=== PATIENT | male | born 1955 | race Caucasian/White ===

== ENCOUNTER 2017-03-18 21:20 | Emergency (ER) | END 2017-03-19 13:21 | disposition home or self-care (01) ==

== ENCOUNTER 2018-10-20 15:16 | Emergency (ER) | payer MEDICARE, OTHER ==
[~2018-10-20] VITALS: Ht 175.3 cm; Wt 78.9 kg
[~2018-10-20 15:16] MED LIST: CLON-230 PO
[2018-10-20 15:17] VITALS: Ht 175.3 cm; Wt 78.9 kg
[2018-10-20] MEDS ORDERED: POTASSIUM CHLORIDE (SR) 20 MEQ TAB PO STA (17:03)
--- NOTE | 2018-10-20 17:37 | PSY ---
Date/Time of Note Date/Time of Note DATE: 10/20/18 TIME: 20:33 Psychiatric Subjective Eval Consent Pt consented to telemedicine: Yes Subjective Evaluation Patient location: emergency Chief Complaint: pt. states "I'm hearing voices to kill myself" History of present illness HPI: 63 yo male with ho psychosis, tells MD he is hearing voices to kill himself for one day. Says he is thinking of killing himself. Denies drug use. Admits to etoh use. past Psych Hx: + ho psych admits and suicide attempts PMHx: htn, mskel pin nkda Meds: not taking MSe: disheveled, cooperative, slow and slurred speech, dysthymic, restricted affect, organized, no delusions + Ah +SI Imp: 63 yo male with CAh to kill self, si, etoh use voluntary psych admit alcohol withdrawal precautions with ciwa daily thiamine folate mvi d/w dr. gaines for moderate agitation zyprexa 5mg po prn d/w attending Medical history Problems Medical Problems: (1) Back pain Status: Acute (2) Psychological assessment Status: Acute (3) Suicidal ideation Status: Acute Allergies: Coded Allergies: No Known Allergy (Unverified , 02/21/12) Psychiatric Objective Eval Mental Status Examination: Laboratory Results Laboratory Tests Test 10/20/18 15:44 10/20/18 16:30 White Blood Count 4.3 10^3/ul Red Blood Count 4.97 10^6/ul Hemoglobin 14.1 g/dl Hematocrit 43.0 % Mean Corpuscular Volume 86.5 fl Mean Corpuscular Hemoglobin 28.4 pg Mean Corpuscular Hemoglobin Concent 32.8 g/dl Red Cell Distribution Width 14.7 % Platelet Count 267 10^3/UL Mean Platelet Volume 9.1 fl Immature Granulocytes % 0.200 % Neutrophils % 41.6 % Lymphocytes % 41.4 % Monocytes % 11.4 % Eosinophils % 4.9 % Basophils % 0.5 % Nucleated Red Blood Cells % 0.0 /100WBC Immature Granulocytes # 0.010 10^3/ul Neutrophils # 1.8 10^3/ul Lymphocytes # 1.8 10^3/ul Monocytes # 0.5 10^3/ul Eosinophils # 0.2 10^3/ul Basophils # 0.0 10^3/ul Nucleated Red Blood Cells # 0.0 10^3/ul Sodium Level 140 mmol/L Potassium Level 3.3 mmol/L Chloride Level 110 mmol/L Carbon Dioxide Level 19 mmol/L Anion Gap 11 Blood Urea Nitrogen 12 mg/dl Creatinine 0.86 mg/dl Est Glomerular Filtrat Rate mL/min > 60 mL/min Glucose Level 115 mg/dl Calcium Level 9.4 mg/dl Total Bilirubin 0.3 mg/dl Direct Bilirubin 0.00 mg/dl Indirect Bilirubin 0.3 mg/dl Aspartate Amino Transf (AST/SGOT) 22 IU/L Alanine Aminotransferase (ALT/SGPT) 13 IU/L Alkaline Phosphatase 105 IU/L Total Protein 7.3 g/dl Albumin 3.9 g/dl Globulin 3.40 g/dl Albumin/Globulin Ratio 1.14 Salicylates Level < 1.0 mg/dl Acetaminophen Level < 10.0 ug/ml Ethyl Alcohol Level 97.0 mg/dl Urine Color STRAW Urine Clarity CLEAR Urine pH 6.0 Urine Specific [place] 1.008 Urine Ketones NEGATIVE mg/dL Urine Nitrite NEGATIVE mg/dL Urine Bilirubin NEGATIVE mg/dL Urine Urobilinogen NEGATIVE mg/dL Urine Leukocyte Esterase NEGATIVE Penny/ul Urine Hemoglobin NEGATIVE mg/dL Urine Glucose NEGATIVE mg/dL Urine Total Protein NEGATIVE mg/dl Urine Opiates Screen Negative Urine Barbiturates Negative Urine Amphetamines Screen Negative Urine Benzodiazepines Screen Negative Urine Cocaine Screen Negative Urine Cannabinoids Negative Assessment and Plan Recommendation/Plan Multiple antipsychotics: No Discharge Disposition: Psychiatric inpatient Legal Status: Voluntary JYOTI GRESHAM Oct 20, 2018 17:37
--- NOTE | 2018-10-20 19:01 | ERD ---
ER Documentation Chief Complaint Chief Complaint pt. states "I'm hearing voices to kill myself" HPI The patient is an 63-year-old male, presenting to the ER because of acute auditory hallucination that asked him to kill himself. He denies visual hallucination/homicidal ideation, headache, neck pain, chest pain, dyspnea, abdominal pain, vomiting, dysuria, diarrhea. He smokes and drinks, denies illicit drug Medical history: Schizophrenia, hypertension Past surgical history: Back surgery, ruptured intestine ROS All systems reviewed and are negative except as per history of present illness. Medications Home Meds Reported Medications Clonidine Hcl (Clonidine Hcl) 0.1 Mg Tablet, 0.1 MG PO BID 02/21/12 Allergies Allergies: Coded Allergies: No Known Allergy (Unverified , 02/21/12) PMhx/Soc History of Surgery: Yes (L4L5 SURG) Anesthesia Reaction: No Hx Neurological Disorder: No Hx Respiratory Disorders: No Hx Cardiac Disorders: No Hx Psychiatric Problems: Yes (DEPRESSION) Hx Miscellaneous Medical Probl: Yes (HTN) Hx Alcohol Use: Yes Hx Substance Use: Yes (crack, meth) Hx Tobacco Use: Yes Smoking Status: Current every day smoker Physical Exam Vitals Vital Signs Date Temp Pulse Resp B/P (MAP) Pulse Ox O2 O2 Flow FiO2 Time Delivery Rate 10/20/18 98.7 85 20 109/83 97 17:53 (92) 10/20/18 98.7 100 20 118/91 97 16:01 (100) 10/20/18 98.7 127 20 116/74 97 15:17 (88) Physical Exam Const: No acute distress. Head: Atraumatic. Eyes: Normal Conjunctiva. ENT: Normal External Ears, Nose and Mouth. Neck: Full range of motion. No meningismus. Resp: Clear to auscultation bilaterally. Cardio: Regular rate and rhythm. Abd: Soft, non distended, normal bowel sounds, non tender. Skin: No petechiae or rashes. Back: No midline or flank tenderness. Ext: No cyanosis, or edema. Neur: Awake and alert. No focal deficit Psych: Suicidal Result Diagram: 10/20/18 1544 10/20/18 1544 Results 24 hrs Laboratory Tests Test 10/20/18 15:44 10/20/18 16:30 White Blood Count 4.3 10^3/ul Red Blood Count 4.97 10^6/ul Hemoglobin 14.1 g/dl Hematocrit 43.0 % Mean Corpuscular Volume 86.5 fl Mean Corpuscular Hemoglobin 28.4 pg Mean Corpuscular Hemoglobin Concent 32.8 g/dl Red Cell Distribution Width 14.7 % Platelet Count 267 10^3/UL Mean Platelet Volume 9.1 fl Immature Granulocytes % 0.200 % Neutrophils % 41.6 % Lymphocytes % 41.4 % Monocytes % 11.4 % Eosinophils % 4.9 % Basophils % 0.5 % Nucleated Red Blood Cells % 0.0 /100WBC Immature Granulocytes # 0.010 10^3/ul Neutrophils # 1.8 10^3/ul Lymphocytes # 1.8 10^3/ul Monocytes # 0.5 10^3/ul Eosinophils # 0.2 10^3/ul Basophils # 0.0 10^3/ul Nucleated Red Blood Cells # 0.0 10^3/ul Sodium Level 140 mmol/L Potassium Level 3.3 mmol/L Chloride Level 110 mmol/L Carbon Dioxide Level 19 mmol/L Anion Gap 11 Blood Urea Nitrogen 12 mg/dl Creatinine 0.86 mg/dl Est Glomerular Filtrat Rate mL/min > 60 mL/min Glucose Level 115 mg/dl Calcium Level 9.4 mg/dl Total Bilirubin 0.3 mg/dl Direct Bilirubin 0.00 mg/dl Indirect Bilirubin 0.3 mg/dl Aspartate Amino Transf (AST/SGOT) 22 IU/L Alanine Aminotransferase (ALT/SGPT) 13 IU/L Alkaline Phosphatase 105 IU/L Total Protein 7.3 g/dl Albumin 3.9 g/dl Globulin 3.40 g/dl Albumin/Globulin Ratio 1.14 Salicylates Level < 1.0 mg/dl Acetaminophen Level < 10.0 ug/ml Ethyl Alcohol Level 97.0 mg/dl Urine Color STRAW Urine Clarity CLEAR Urine pH 6.0 Urine Specific [place] 1.008 Urine Ketones NEGATIVE mg/dL Urine Nitrite NEGATIVE mg/dL Urine Bilirubin NEGATIVE mg/dL Urine Urobilinogen NEGATIVE mg/dL Urine Leukocyte Esterase NEGATIVE Penny/ul Urine Hemoglobin NEGATIVE mg/dL Urine Glucose NEGATIVE mg/dL Urine Total Protein NEGATIVE mg/dl Urine Opiates Screen Negative Urine Barbiturates Negative Urine Amphetamines Screen Negative Urine Benzodiazepines Screen Negative Urine Cocaine Screen Negative Urine Cannabinoids Negative Current Medications Medications Dose Sig/Nathan Start Time Status Last (Trade) Ordered Route PRN Stop Time Admin Dose Reason Admin Potassium 40 meq ONCE STAT 10/20/18 DC 10/20/18 Chloride PO 17:03 17:16 (Klor-Con 20) 10/20/18 17:12 Procedures/MDM MEDICAL MAKING DECISION: The patient is a 63-year-old male, presenting with acute suicidal ideation, acute hypokalemia, acute alcohol abuse, leukopenia. He was treated with potassium chloride 40 mg p.o. for acute hyperkalemia The differential diagnoses considered include but are not limited to decomp ensated psychiatric illness, medical noncompliance, anxiety attack, panic attack, substance abuse Departure Diagnosis: Primary Impression: Suicidal ideation Additional Impressions: Hypokalemia Alcohol abuse Leukopenia Condition: Stable Comments I discussed the patient with telepsychiatrist after he read the patient. He recommended voluntary 5150 psychiatric admission He is cleared for psychiatric evaluation and admission RUTH ANN FERRIS MD Oct 20, 2018 19:01
--- NOTE | 2018-10-20 21:12 | EN ---
Date/Time of Note Date/Time of Note DATE: 10/20/18 TIME: 21:11 ER Progress Note Sign Out Note: Dr. Jiang relayed current data and ongoing care with me. Time: Time of this note Main Issue: Suicide Ideations Pending: Transfer to psychiatric facility on a voluntary basis. I was told by Dr. Jiang that this patient is medically cleared for transfer to a psychiatric facility. Patient is pending placement. HAM SONI MD Oct 20, 2018 21:12
[2018-10-20 21:53] VITALS: BP 140/90; PULSE 65; RESP 18
== END 2018-10-20 22:41 | disposition home or self-care (01) ==
LOC: E/R 15:16
DX: E87.6 Hypokalemia (principal); I10 Essential (primary) hypertension; F17.210 Nicotine dependence, cigarettes, uncomplicated; D72.819 Decreased white blood cell count, unspecified; F10.10 Alcohol abuse, uncomplicated
CPT/HCPCS: 36415; 80053; 80307; 81003; 85025; 99283

== ENCOUNTER 2018-10-27 16:27 | Emergency (ER) | payer MEDICARE, OTHER ==
[~2018-10-27] VITALS: Ht 180.3 cm; Wt 90.0 kg
[2018-10-27 16:30] VITALS: Ht 180.3 cm; Wt 90.0 kg
[2018-10-27] MEDS ORDERED: SOD CHLORIDE 0.9% 1,000 ML IV STA ×2 (16:35)
--- NOTE | 2018-10-27 16:54 | ERD ---
ER Documentation Chief Complaint Chief Complaint BIBA D/T SYNCOPE AND HYPOTENSION AND ETOH HPI This is a 63-year-old male that presents to the emergency department after he had a witnessed brief transient loss of consciousness with loss of postural tone and complete spontaneous recovery at [facility] just prior to arrival. 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 The syncope episode only lasted for roughly 5 seconds. He stated that he felt dizzy and therefore sat down and when EMS arrived the patient was hypotensive. They administered a 500 cc bolus of normal saline. The patient denied any chest pain. He denied a headache. He did state that he had been consuming alcohol today. He had been in the hot sun for an extended period of time. He denies any shortness of breath at rest or exertion. ROS All systems reviewed and are negative except as per history of present illness. Medications Home Meds Reported Medications Ibuprofen* (Ibuprofen*) 800 Mg Tab, 800 MG PO Q12H PRN for PAIN, TAB 10/27/18 Gabapentin* (Gabapentin*) 300 Mg Capsule, 300 MG PO TID, #90 CAP 10/27/18 [place]-3 Acid Ethyl Esters (Lovaza) 1 Gm Capsule, 2 GM PO BID, CAP 10/27/18 Ezetimibe* (Zetia*) 10 Mg Tablet, 10 MG PO HS, TAB 10/27/18 Quetiapine Fumarate* (Seroquel*) 50 Mg Tablet, 50 MG PO BID, TAB 10/27/18 Esomeprazole Mag Trihydrate (Nexium) 40 Mg Capsule.dr, 40 MG PO DAILY, #30 CAP 10/27/18 Losartan Potassium* (Losartan Potassium*) 25 Mg Tablet, 25 MG PO DAILY, TAB 10/27/18 Paroxetine Hcl* (Paroxetine*) 20 Mg Tablet, 20 MG PO HS, TAB 10/27/18 Clonidine Hcl* (Clonidine Hcl*) 0.1 Mg Tab, 0.1 MG PO BID, TAB 10/27/18 Discontinued Reported Medications Clonidine Hcl (Clonidine Hcl) 0.1 Mg Tablet, 0.1 MG PO BID 02/21/12 Allergies Allergies: Coded Allergies: No Known Allergy (Unverified , 10/27/18) PMhx/Soc History of Surgery: Yes (L4L5 SURG) Anesthesia Reaction: No Hx Neurological Disorder: No Hx Respiratory Disorders: No Hx Cardiac Disorders: No Hx Psychiatric Problems: Yes (DEPRESSION, SCHIZO) Hx Miscellaneous Medical Probl: Yes (HTN) Hx Alcohol Use: Yes Hx Substance Use: Yes (crack, meth) Hx Tobacco Use: Yes Physical Exam Vitals Vital Signs Date Temp Pulse Resp B/P (MAP) Pulse Ox O2 O2 Flow FiO2 Time Delivery Rate 10/27/18 16 121/81 98 Room Air 18:30 (94) 10/27/18 82 16 93/62 (72) 96 Room Air 17:06 110 107/76 (86) 112 108/85 (93) 10/27/18 97.9 82 16 87/60 (69) 98 16:30 Physical Exam Constitutional:Well-developed. Disheveled HEENT:Normocephalic. Atraumatic with no nasal septal hematoma no hemotympanum. Pupils were equal round reactive to light. Dry mucous membranes.No tonsillar exudates. Neck: No nuchal rigidity. No lymphadenopathy. No posterior cervical spine tenderness or step-offs. Respiratory: Not using accessory muscles of respiration.Lungs were clear to auscultation bilaterally. No rhonchi. No rales. No wheezing. Cardiovascular: Regular rate regular rhythm.No murmurs. No rubs were appreciated.S1, S2 normal. Distal pulses are palpable 2+ bilaterally. GI: Abdomen was soft. Nontender. Non Distended. No pulsatile abdominal masses or bruits. No rebound. No guarding. Bowel sounds were present and normal. Muscle skeletal: Full range of motion of both the upper and lower extremities bilaterally.Normal muscle tone.No assymetrical calf tenderness or swelling. Skin: No petechia, no purpura. No lesions on the palms or the soles of the feet. No maculopapular rash. NEURO: Patient was alert, awake, orientated x3.No facial droop. Gait not observed as patient felt too weak to ambulate. Patient smelled of alcohol. Result Diagram: 10/27/18181310/27/181813 Results 24 hrs Laboratory Tests Test 10/27/18 18:07 10/27/18 18:14 Bedside Glucose 58 mg/dL White Blood Count 7.1 10^3/ul Red Blood Count 4.82 10^6/ul Hemoglobin 13.6 g/dl Hematocrit 41.4 % Mean Corpuscular Volume 85.9 fl Mean Corpuscular Hemoglobin 28.2 pg Mean Corpuscular Hemoglobin Concent 32.9 g/dl Red Cell Distribution Width 14.5 % Platelet Count 294 10^3/UL Mean Platelet Volume 9.3 fl Immature Granulocytes % 0.400 % Neutrophils % 68.9 % Lymphocytes % 18.1 % Monocytes % 9.9 % Eosinophils % 2.1 % Basophils % 0.6 % Nucleated Red Blood Cells % 0.0 /100WBC Immature Granulocytes # 0.030 10^3/ul Neutrophils # 4.9 10^3/ul Lymphocytes # 1.3 10^3/ul Monocytes # 0.7 10^3/ul Eosinophils # 0.2 10^3/ul Basophils # 0.0 10^3/ul Nucleated Red Blood Cells # 0.0 10^3/ul Prothrombin Time 13.0 Sec Prothrombin Time Ratio 1.0 INR International Normalized Ratio 0.97 Activated Partial Thromboplast Time 25.8 Sec Sodium Level 138 mmol/L Potassium Level 4.0 mmol/L Chloride Level 107 mmol/L Carbon Dioxide Level 19 mmol/L Anion Gap 12 Blood Urea Nitrogen 14 mg/dl Creatinine 1.19 mg/dl Est Glomerular Filtrat Rate mL/min > 60 mL/min Glucose Level 82 mg/dl Calcium Level 8.7 mg/dl Total Bilirubin 0.3 mg/dl Direct Bilirubin 0.00 mg/dl Indirect Bilirubin 0.3 mg/dl Aspartate Amino Transf (AST/SGOT) 31 IU/L Alanine Aminotransferase (ALT/SGPT) 40 IU/L Alkaline Phosphatase 91 IU/L Troponin I < 0.012 ng/ml Total Protein 7.2 g/dl Albumin 3.9 g/dl Globulin 3.30 g/dl Albumin/Globulin Ratio 1.18 Ethyl Alcohol Level 95.0 mg/dl Current Medications Medications Dose Sig/Nathan Start Time Status Last (Trade) Ordered Route PRN Stop Time Admin Dose Reason Admin Sodium 1,000 ml @ Q1H STAT 10/27/18 DC 10/27/18 Chloride 1,000 mls/hr IV 16:35 10/27/18 16:35 17:34 Sodium 1,000 ml @ Q1H STAT 10/27/18 DC 10/27/18 Chloride 1,000 mls/hr IV 16:35 10/27/18 16:35 17:34 Procedures/MDM The patient presented to the emergency department with a transient loss of consciousness with loss of postural tone, suggestive of a syncope episode. The differential diagnosis of syncope is vast but my workup considered common benign disorders to life-threatening processes. Therefore my differential diagnosis included but was not limited to reflex-mediated syncope such as vasovagal or carotid sinus syncope from coughing, sneezing, micturition, or GI stimulation (eg, defecation). Other etiologies in my workup included orthostatic hypotension which could cause syncope from an abrupt drop in venous return to heart from volume depletion. An EKG and cardiac enzymes were obtained to rule out cardiac arrhythmias or ischemia. Cardiopulmonary disease such as valvular disease, hypertrophic cardiomyopathy, pericardial tamponade, or pulmonary embolism were considered as a factor causing the patients syncope episode. The patient had no difference in blood pressure in both arms that could suggest aortic dissection or subclavian steal syndrome. Rectal exam was negative for fecal occult blood that could suggest GI bleeding. Ancillary laboratory work was obtained to evaluate for metabolic or electrolyte abnormalities. The patient had no witnessed brief tonic movements that could suggest postictal confusion. The patient was placed on a instructor physical education, continuous pulse oximetry and IV access established by nursing staff. The patient had orthostatic hypotension and was given a liter bolus of normal saline. 12 Lead EKG tracing ordered and reviewed by myself showed: Normal sinus rhythm of 84 bpm and no arrhythmia. DE interval normal. QRS duration normal. No ST segment elevation with minimal criteria for LVH No ST segment depression. No changes consistent with acute ischemia. Given that the patient was clinically intoxicated and initially a poor historian I did feel is necessary to obtain a CT scan the patient's head. There is no intracerebral hemorrhage such as subdural hematoma or mass-effect. I did feel the patient's syncope was more likely a vasovagal episode exacerbated by his alcohol intoxication. The patient had received IV fluids in the emergency department with complete resolution of his blood pressure. The patient had no severe left light abnormalities. He remained in the emergency department to clinical sobriety tree. He stated he felt comfortable being discharged home. He had no suicidal homicidal thoughts or ideations. The patient was hypoglycemic with a blood glucose of 58. He stated he had not eaten for over 12 hours. He was given a meal in the emergency department. Observation Note: Time: 4 hours Family Hx: No Hypertension Evaluation: Multiple exams showed improving symptoms and no evidence of worsening of his condition. The patient was discharged home in fair condition. They were instructed to return to the emergency department at any time if there was any worsening of their condition. The patient stated they would follow up with their PCP in the next 24-48 hours to initiate a suitable medication regimen under the care of their PCP as well as to allow their PCP to monitor any drug reactions. The patient was discharged home with prescriptions after they gave informed consent to the new medication. They were also fully informed by myself on the adverse effects and adverse drug interactions in order to provide adequate safeguards to prevent possible adverse reactions to medications. Departure Diagnosis: Primary Impression: Syncope Syncope type: unspecified Qualified Codes: R55 - Syncope and collapse Additional Impression: Alcohol intoxication Complication of substance-induced condition: uncomplicated Qualified Codes: F10.920 - Alcohol use, unspecified with intoxication, uncomplicated Condition: Fair CLARISA FISH MD Oct 27, 2018 16:54
[2018-10-27] MEDS ORDERED: CLON-379 PO (17:04)
[2018-10-27] MEDS ORDERED: LOSA25TA12 PO (17:05)
[2018-10-27] MEDS ORDERED: PARO-37 PO (17:05)
[2018-10-27] MEDS ORDERED: ESOM40CA PO (17:06)
[2018-10-27] MEDS ORDERED: QUET50TA PO (17:07)
[2018-10-27] MEDS ORDERED: EZET10TA31 PO (17:08)
[2018-10-27] MEDS ORDERED: OMEG1CAP2 PO (17:08)
[2018-10-27] MEDS ORDERED: GABA300C16 PO (17:09)
[2018-10-27] MEDS ORDERED: IBUP-1545 PO (17:10)
[2018-10-27 20:12] VITALS: BP 101/63; PULSE 92; RESP 14
== END 2018-10-27 21:09 | disposition home or self-care (01) ==
LOC: E/R 16:27
DX: R55 Syncope and collapse (principal); I10 Essential (primary) hypertension; F10.920 Alcohol use, unspecified with intoxication, uncomplicated; Z87.891 Personal history of nicotine dependence
CPT/HCPCS: 36415; 70450; 80053; 80307; 82962; 84484; 85025; 85610; 85730; 93005; 99285; J7030